=== PATIENT | female | born 1995 | race African-American/Black ===

== ENCOUNTER 2025-08-07 09:35 | Emergency (ER) | payer OTHER, SELFPAY ==
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
[2025-08-07 09:56] VITALS: BP 117/79; PULSE 78; RESP 16; TEMP 36.6; O2SAT 99
== END 2025-08-07 10:42 | disposition short-term general hospital (02) ==
PROVIDERS: Emergency Provider Nurse Practitioner Family
DX: S06.0XAA Concussion with loss of consciousness status unknown, initial encounter (principal); M54.2 Cervicalgia; M54.6 Pain in thoracic spine; M25.531 Pain in right wrist; M54.50 Low back pain, unspecified; V43.62XA Car passenger injured in collision with other type car in traffic accident, initial encounter
CPT/HCPCS: 99212; G0463; L0140

== ENCOUNTER 2025-08-07 10:59 | Emergency (ER) | payer OTHER, SELFPAY ==
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
[2025-08-07 11:06] VITALS: BP 119/67; PULSE 72; RESP 18; TEMP 36.4; O2SAT 100
--- OUTSIDE RECORDS SUMMARY | 2025-08-07 13:06 | XMS_ITS | Clinical Summary ---
Author Organization [facility] Address [address] [place] [address] Phone Care Team Providers Care Access Database Developer Name Role Phone Julianne, Norma Higgins APRN, CNP Primary Care Provider Allergies No known active allergies Medications albuterol 108 (90 Base) MCG/ACT Aerosol Solution take 2 Puffs by inhalation as needed. 1 Active Escitalopram Oxalate 5 MG Tablet Take 1 Tablet by mouth daily. 2 Active naproxen (NAPROSYN) 500 MG Tablet Take 1 Tablet by mouth 2 times daily (with meals). 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 Gender Identity Not on file Sexual Orientation Not on file Last Filed Vital Signs Vital Sign Reading Time Taken Comments Blood Pressure 126/67 01/05/2025 10:45 PM CDT Pulse 63 01/05/2025 10:45 PM CDT Temperature 36.4 C (97.6 F) 01/05/2025 8:01 PM CDT Respiratory Rate 23 01/05/2025 9:00 PM CDT Oxygen Saturation 100% 01/05/2025 10:45 PM CDT Inhaled Oxygen Concentration - - Weight 72.6 kg (160 lb) 01/05/2025 8:01 PM CDT Height 157.5 cm (5' 2) 01/05/2025 8:01 PM CDT Body Mass Index 29.26 01/05/2025 8:01 PM CDT Plan of Treatment Health Maintenance Due Date Last Done Comments Hepatitis C Virus (HCV) Screening 1996 TdaP Immunization 1996 Pap Smear 02/12/2017 Human Papillomavirus (HPV) Immunization (1 - 3-dose SCDM series) 02/12/2023 Hepatitis B Immunization (3 of 3 - 19+ 3-dose series) 12/26/2024 07/26/2024, 06/28/2024 Influenza Immunization (#1) 2025 SARS-COV-2 Immunization ( - 2023- season) 2025 Respiratory Syncytial Virus (RSV) Immunization (Adult) (1 - 1-dose 75+ series) 02/12/2071 Meningococcal Immunization (ACWY) Aged Out No longer eligible b ased on patient's age to complete this topic Pneumococcal Immunization Combined Aged Out No longer eligible b ased on patient's age to complete this topic Rotavirus Immunization Aged Out No lo nger eligible based on patient's age to complete this topic Insurance [facility] Care Teams Access Database Developer Relationship Specialty Start Date End Date Norma Whitaker APRN, BALLASTER [address] [phone] PCP - General Advanced Practice Nurse 01/29/21
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
[2025-08-07 13:34] VITALS: BP 121/82; PULSE 69; RESP 18; TEMP 36.4; O2SAT 100
[2025-08-07 15:12] LABS: BEDSIDEPREGUCG Negative (Negative)
--- OUTSIDE RECORDS SUMMARY | 2025-08-07 15:38 | XMS_ITS | Clinical Summary ---
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
[2025-08-07 16:39] VITALS: BP 131/81; PULSE 70; RESP 17; O2SAT 100
== END 2025-08-07 16:40 | disposition home or self-care (01) ==
PROVIDERS: Emergency Provider Physician Assistant; PCP Nurse Practitioner Family
DX: S16.1XXA Strain of muscle, fascia and tendon at neck level, initial encounter (principal); S66.912A Strain of unspecified muscle, fascia and tendon at wrist and hand level, left hand, initial encounter; V49.40XA Driver injured in collision with unspecified motor vehicles in traffic accident, initial encounter
CPT/HCPCS: 70450; 72125; 72128; 73110; 81025; 99284